=== PATIENT | male | born 1990 | race African-American/Black ===

== ENCOUNTER 2023-07-25 20:26 | Emergency (ER) | payer MEDICAID ==
[~2023-07-25] VITALS: Ht 170.2 cm; Wt 95.0 kg
[2023-07-25 21:04] VITALS: BP 131/74; PULSE 59; RESP 18; TEMP 98.5; O2SAT 99
[2023-07-25] MEDS: IBUPROFEN 600MG TABLET PO ONE (22:58)
[2023-07-25] MEDS: BACITRACIN ZINC OINT UDPKT TOP ONE ×2 (22:58→22:59)
[2023-07-25] MEDS: TETANUS, DIPHTHERIA, PERTUSSIS VAC/PF 0.5ML (>10YR OLD) IM ONE (22:58)
[2023-07-25] MEDS ORDERED: BO1 TP (23:25)
[2023-07-25] MEDS ORDERED: NAPR-681 MT (23:25)
[2023-07-25] MEDS ORDERED: AMOX1TAB16 MT (23:25)
== END 2023-07-25 23:41 | disposition home or self-care (01) ==
LOC: ER 20:26
DX: S40.811A Abrasion of right upper arm, initial encounter (principal); S81.852A Open bite, left lower leg, initial encounter; W54.0XXA Bitten by dog, initial encounter; Y93.89 Activity, other specified; Y92.89 Other specified places as the place of occurrence of the external cause; Y99.8 Other external cause status
CPT/HCPCS: 90715; 90471; 99283; Z7610